=== PATIENT | female | born 1950 | race Caucasian/White ===

== ENCOUNTER 2018-04-29 04:36 | Emergency (ER) | payer MEDICARE, BC ==
[~2018-04-29] VITALS: Ht 142.2 cm; Wt 50.9 kg
[~2018-04-29 04:36] MED LIST: ASPI81TA87 PO; DOCU-119 PO; GLIP5TAB11 PO; MECL12.585 PO; METF1000 PO; SIMV20TA6 PO; VALS160T2 PO
[2018-04-29] MEDS ORDERED: PRAV20TA4 PO (04:48)
[2018-04-29] MEDS ORDERED: MULT-1259 PO (04:48)
[2018-04-29] MEDS ORDERED: SITA100 PO (04:48)
[2018-04-29] MEDS ORDERED: AMLO-512 PO (04:48)
[2018-04-29] MEDS ORDERED: LOSA50TA37 PO (04:48)
[2018-04-29] MEDS ORDERED: RALO60 PO (04:48)
[2018-04-29 04:58] LABS: GLUCOSE,POINT OF CARE 232 MG/DL (70-110)
[2018-04-29 06:49] LABS: BASOPHILS % (AUTO) 0.8 % (0.0-2.0); EOSINOPHILS % (AUTO) 0.1 % (1.0-6.0); HEMATOCRIT 39.7 % (36-46); HEMOGLOBIN 13.6 g/dL (12.0-16.0); LYMPHOCYTES # (AUTO) 1.8 K/uL (1.0-4.8); LYMPHOCYTES % (AUTO) 12.4 % (22.0-44.0); MEAN CORPUSCULAR HEMOGLOBIN 30.5 pg (26.0-34.0); MEAN CORPUSCULAR HGB CONC 34.4 G/dL (31.0-37.0); MEAN CORPUSCULAR VOLUME 89 fL (80-100); MONOCYTES # (AUTO) 0.7 K/uL (0.1-1.0); MONOCYTES % (AUTO) 4.6 % (2.0-9.0); NEUTROPHILS # (AUTO) 11.8 K/uL (1.8-7.7); NEUTROPHILS % (AUTO) 82.1 % (40.0-70.0); PLATELET COUNT (AUTO) 176 K/uL (150-450); RED BLOOD CELL COUNT(AUTO) 4.47 MIL/uL (4.00-5.20); RED CELL DISTRIBUTION WIDTH 13.1 % (11.5-14.5)
[2018-04-29] MEDS ORDERED: SODIUM CHLORIDE 0.9% 1,000 ML IV ONE (07:00)
[2018-04-29] MEDS ORDERED: ACETAMINOPHEN 500 MG TABLET PO ONE (07:00)
[2018-04-29] MEDS ORDERED: ONDANSETRON HCL 4 MG/2 ML VIAL IVP ONE (07:00)
[2018-04-29] MEDS ORDERED: MECLIZINE HCL 25 MG TABLET PO ONE (07:00)
[2018-04-29 07:06] LABS: CALCIUM, TOTAL 9.6 mg/dL (8.8-10.5); CREATININE 1.01 mg/dL (0.60-1.30); POTASSIUM 4.7 mmol/L (3.5-5.1)
[2018-04-29 07:12] LABS: ALBUMIN 4.3 g/dL (3.4-5.0); BILIRUBIN,TOTAL 0.4 mg/dL (0.1-1.0); TOTAL PROTEIN, SERUM 8.8 g/dL (6.4-8.2)
[2018-04-29 07:22] LABS: APPEARANCE,URINE CLEAR (CLEAR); BILIRUBIN,URINE NEGATIVE (NEGATIVE); GLUCOSE, URINE (UA) >=1000 mg/dL (NEGATIVE); KETONES,URINE 40 mg/dL (NEGATIVE); LEUKOCYTE ESTERASE ,URINE NEGATIVE (NEGATIVE); NITRATE,URINE NEGATIVE (NEGATIVE); OCCULT BLOOD,URINE NEGATIVE (NEGATIVE); PH,URINE 5.5 (5.0-8.0); PROTEIN,URINE NEGATIVE (NEGATIVE); UROBILINOGEN,URINE 0.2 mg/dL (<=1.0)
[2018-04-29 07:28] LABS: BACTERIA,URINE None Seen /HPF (None Seen); RBC,URINE 0-2 /HPF (0-2); SQUAMOUS EPITHELIAL CELL,UR Rare /LPF (None Seen); WBC,URINE 0-2 /HPF (0-5)
[2018-04-29 09:17] VITALS: BP 117/57
== END 2018-04-29 09:20 | disposition home or self-care (01) ==
LOC: EMS 04:36
DX: E11.65 Type 2 diabetes mellitus with hyperglycemia (principal); K52.9 Noninfective gastroenteritis and colitis, unspecified; I10 Essential (primary) hypertension
CPT/HCPCS: 36415; 70450; 80053; 81001; 82962; 84484; 85025; 93005; 99285; J2405; J7030

== ENCOUNTER 2019-03-07 00:33 | Emergency (ER) | payer MEDICARE, BC ==
[~2019-03-07] VITALS: Ht 142.2 cm; Wt 46.4 kg
[~2019-03-07 00:33] MED LIST changes: +AMLO-512 PO; -ASPI81TA87 PO; -DOCU-119 PO; -GLIP5TAB11 PO; +LOSA50TA64 PO; -MECL12.585 PO; +MULT-1259 PO; +PRAV20TA4 PO; +RALO60 PO; -SIMV20TA6 PO; +SITA100 PO; -VALS160T2 PO
[2019-03-07 00:59] LABS: GLUCOSE,POINT OF CARE 122 MG/DL (70-110)
[2019-03-07 01:36] LABS: BASOPHILS % (AUTO) 0.3 % (0.0-2.0); EOSINOPHILS % (AUTO) 0.9 % (1.0-6.0); HEMATOCRIT 37.6 % (36-46); HEMOGLOBIN 12.2 g/dL (12.0-16.0); LYMPHOCYTES # (AUTO) 1.8 K/uL (1.0-4.8); LYMPHOCYTES % (AUTO) 11.8 % (22.0-44.0); MEAN CORPUSCULAR HEMOGLOBIN 29.2 pg (26.0-34.0); MEAN CORPUSCULAR HGB CONC 32.3 G/dL (31.0-37.0); MEAN CORPUSCULAR VOLUME 91 fL (80-100); MONOCYTES # (AUTO) 0.9 K/uL (0.1-1.0); MONOCYTES % (AUTO) 5.8 % (2.0-9.0); NEUTROPHILS # (AUTO) 12.3 K/uL (1.8-7.7); NEUTROPHILS % (AUTO) 81.2 % (40.0-70.0); PLATELET COUNT (AUTO) 179 K/uL (150-450); RED BLOOD CELL COUNT(AUTO) 4.16 MIL/uL (4.00-5.20); RED CELL DISTRIBUTION WIDTH 13.3 % (11.5-14.5)
[2019-03-07 01:45] LABS: ANION GAP 9 mmol/L (8-16); CALCIUM, TOTAL 9.3 mg/dL (8.8-10.5); CARBON DIOXIDE 27 mmol/L (22-29); CHLORIDE 103 mmol/L (98-107); CREATININE 0.88 mg/dL (0.60-1.30); GLOMERULAR FILTR. RATE CALC > 60 mL/min (>60); GLUCOSE,RANDOM 162 mg/dL (70-110); POTASSIUM 4.1 mmol/L (3.5-5.1); SODIUM SERUM 139 mmol/L (136-145); UREA NITROGEN, BLOOD 16 mg/dL (7-18)
[2019-03-07 01:52] LABS: ALANINE AMINOTRANSFERASE 92 U/L (12-78); ALBUMIN 3.4 g/dL (3.4-5.0); ALKALINE PHOSPHATASE 58 U/L (46-116); ASPARTATE AMINOTRANSFERASE 63 U/L (15-37); BILIRUBIN,TOTAL 1.3 mg/dL (0.1-1.0); TOTAL PROTEIN, SERUM 7.3 g/dL (6.4-8.2)
[2019-03-07] MEDS ORDERED: SODIUM CHLORIDE 0.9% 1,000 ML IV ONE (02:30)
[2019-03-07] MEDS ORDERED: ONDANSETRON HCL 4 MG/2 ML VIAL IVP ONE (02:30)
[2019-03-07] MEDS ORDERED: PB/HYOSCY/ATR/SCOP/LIDO/MAALOX 55 ML BOTTLE PO ONE (02:30)
[2019-03-07 02:32] LABS: LIPASE 22574 U/L (73-393)
[2019-03-07 03:22] LABS: APPEARANCE,URINE CLOUDY (CLEAR); BILIRUBIN,URINE NEGATIVE (NEGATIVE); GLUCOSE, URINE (UA) >=1000 mg/dL (NEGATIVE); KETONES,URINE 15 mg/dL (NEGATIVE); LEUKOCYTE ESTERASE ,URINE MODERATE (NEGATIVE); NITRATE,URINE NEGATIVE (NEGATIVE); OCCULT BLOOD,URINE TRACE (NEGATIVE); PROTEIN,URINE NEGATIVE (NEGATIVE); UROBILINOGEN,URINE 0.2 mg/dL (<=1.0)
[2019-03-07 03:29] LABS: BACTERIA,URINE Few /HPF (None Seen); SQUAMOUS EPITHELIAL CELL,UR Rare /LPF (None Seen); WBC,URINE >100 /HPF (0-5)
[2019-03-07] MEDS ORDERED: IOVERSOL 350 MG/ML 100 ML VIAL ONE (03:52)
[2019-03-07] MEDS ORDERED: SODIUM CHLORIDE 0.9% 100 ML ONE (03:52)
[2019-03-07] MEDS ORDERED: PIPERACILLIN/TAZO 3.375 GM/D5W 50 ML IV ONE (05:00)
[2019-03-07 06:15] LABS: GLUCOSE,POINT OF CARE 150 MG/DL (70-110)
[2019-03-07 07:55] VITALS: BP 104/59
[2019-03-07 07:59] LABS: GLUCOSE,POINT OF CARE 128 MG/DL (70-110)
== END 2019-03-07 08:24 | disposition short-term general hospital (02) ==
LOC: EMS 00:33
DX: N39.0 Urinary tract infection, site not specified (principal); K85.90 Acute pancreatitis without necrosis or infection, unspecified; E11.9 Type 2 diabetes mellitus without complications; I10 Essential (primary) hypertension; Z79.899 Other long term (current) drug therapy; Z90.710 Acquired absence of both cervix and uterus
CPT/HCPCS: 36415; 74177; 80053; 81001; 82962; 83690; 84484; 85025; 87077; 87086; 93005; 96361; 96365; 96375; 99285; J2405; J2543; J7030; J7050; Q9967